=== PATIENT | female | born 1985 | race American Indian/Alaskan Native ===

== ENCOUNTER 2020-11-24 21:40 | Outpatient (CLI) | payer OTHER ==
[2020-11-24 22:28] VITALS: BP 118/64
[2020-11-24] MEDS ORDERED: LACTATED RINGERS 1000 ML IV SOLN ONE (23:30)
[2020-11-24] MEDS ORDERED: LACTATED RINGERS 1,000 ML IV ONE (23:37)
[2020-11-25 00:05] LABS: Bilirubin,Urine NEG (Negative); Blood,Urine NEG (Negative); Color,Urine Yellow (Yellow); Mucus,Urine FEW /HPF
[2020-11-25] MEDS ORDERED: ACETAMINOPHEN 500 MG TAB PO ONE (00:51)
--- NOTE | 2020-11-25 01:02 | Ultrasound Report ---
ULTRASOUND OBSTETRIC LIMITED ULTRASOUND BIOPHYSICAL PROFILE INDICATION / CLINICAL INFORMATION: well being. Clinical Gestational Age (GA) in weeks, days: 32 weeks 6 days TECHNIQUE: Transabdominal. COMPARISON: None available. FINDINGS: BREATHING MOVEMENT = 2 GROSS BODY MOVEMENT = 2 TONE = 2 QUALITATIVE AMNIOTIC FLUID VOLUME = 2 TOTAL BIOPHYSICAL SCORE = 8/8 HEART RATE (beats per minute): 147 AMNIOTIC FLUID INDEX (cm) = 20.9 (normal = 7-24 cm) PRESENTATION: Cephalic. ADDITIONAL FINDINGS: Placenta is located posterior/fundal without previa. IMPRESSION: 1. Biophysical Score = 8/8 2. Single viable IUP in a cephalic presentation with normal ALLIE. Signer Name: Kaycee Perdomo MD Signed: 11/25/2020 12:58 AM Workstation Name: [id number]
== END 2020-11-25 02:30 | disposition home or self-care (01) ==
LOC: TRG 21:40 → APU 21:49 → TRG 11-25 02:30
PROVIDERS: ATTEND Obstetrics & Gynecology
DX: O62.9 Abnormality of forces of labor, unspecified (principal); Z3A.32 32 weeks gestation of pregnancy
CPT/HCPCS: 59025; 76815; 76819; 81001; 96360; J7120; 96361

== ENCOUNTER 2021-01-06 20:38 | Inpatient (IN) | payer OTHER ==
[2021-01-06] MEDS ORDERED: OXYTOCIN 10 UNIT/1 ML INJ IM PRN ×2 (22:29→22:37)
[2021-01-06] MEDS ORDERED: MINERAL OIL 30 ML ORAL LIQD PO PRN ×2 (22:29→22:37)
[2021-01-06] MEDS ORDERED: ePHEDrine SULFATE 50 MG/1 ML INJ IV PRN ×2 (22:29→22:37)
[2021-01-06] MEDS ORDERED: CARBOPROST TROMETHAMINE 250 MCG/1 ML INJ IM PRN ×2 (22:29→22:37)
[2021-01-06] MEDS ORDERED: LOPERAMIDE 2 MG CAP PO PRN ×2 (22:29→22:37)
[2021-01-06] MEDS ORDERED: miSOPROStol 200 MCG TAB PR PRN ×2 (22:29→22:37)
[2021-01-06] MEDS ORDERED: fentaNYL 100 MCG/2 ML INJ IV PRN ×2 (22:29→22:37)
[2021-01-06] MEDS ORDERED: METHYLERGONOVINE MALEATE 0.2 MG/ML VIAL IM PRN ×2 (22:29→22:37)
[2021-01-06] MEDS ORDERED: LIDOCAINE (2%) 20 MG/1 ML VIAL 20 ML MDV INFILTRATI ONE ×2 (22:29→22:37)
[2021-01-06] MEDS ORDERED: TERBUTALINE 1 MG/1 ML INJ SUB-Q PRN ×2 (22:29→22:37)
[2021-01-06] MEDS ORDERED: BUTORPHANOL 2 MG/1 ML INJ IV PRN ×3 (22:29→22:37)
[2021-01-06] MEDS ORDERED: ACETAMINOPHEN 325 MG TAB PO PRN ×2 (22:29→22:37)
[2021-01-06] MEDS ORDERED: LACTATED RINGERS 1,000 ML IV SCH ×2 (22:30→22:45)
[2021-01-06] MEDS ORDERED: ONDANSETRON 4 MG/2 ML INJ IV PRN (22:37)
[2021-01-06 22:50] LABS: Hematocrit 30.9 % (30.3-42.9); Hemoglobin 9.6 gm/dl (10.1-14.3); Mean Corpuscular HGB Conc 31 % (30-34); Mean Corpuscular Volume 75 fl (79-97); Platelet Count 461 K/mm3 (140-440); Red Blood Count 4.14 M/mm3 (3.65-5.03)
[2021-01-06 22:51] LABS: Red Cell Distribution Width 21.6 % (13.2-15.2)
--- NOTE | 2021-01-06 22:55 | History and Physical Report ---
History of Present Illness Date of examination: 01/06/21 Date of admission: 01/06/21 20:38 Chief complaint: 38 weeks iup with polyhydramnios.here for ind;uction of labor. History of present illness: Patient is a 35-year-old -Citizen Of [place] female 6 para 3-0-2-3 female. Last menstrual period April 09, 2020 EDC January 14, 2021 her was shown that she was referred to a PA because of advanced maternal age. Also that she has a BMI of 38.888 admitted overnight 39 weeks. A PA. The patient desires permanent sterilization. She signed tubal consent for 1 hour GTT was 79 3-hour GTT was within normal limits hemoglobin A1c was 6.0. At bedtime the she was started Valtrex prophylaxis at 36 weeks she has polyhydramnios diagnosed by a 534.19 on December 11, 2020 her thyroid-stimulating hormone was 0.276. Patient had 7 visits at the office. Her chlamydia and gonorrhea tests were negative group B strep test was also negative she has no allergies no surgery. Past medical history was positive for osteoarthrosis and breast cancer and hepatitis C Herpes 2 she has had 2 abortions elective in the past. Catamenia was 1227. This is her sixth she is asked to induced abortions 3 full-term 3 living children her ultrasound was done in the first trimester. And also repeated in the second trimester. The patient is admitted for induction of labor for polyhydramnios at 38+ weeks for APA. Past History Past Medical History: no pertinent history Past Surgical History: other (2 ABORTIONS ELECTIVE) Family/Genetic History: other (Osteoarthrosis breast cancer diabetes type 2 and hepatitis C.) - Obstetrical History Expected Date of Delivery: 01/14/21 Actual Gestation: 38 Week(s) 6 Day(s) : 6 Para: 3 Hx # Term Pregnancies: 3 Number of Pregnancies: 0 Spontaneous Abortions: 0 Induced : 3 Number of Living Children: 3 Medications and Allergies Allergies Allergy/AdvReac Type Severity Reaction Status Date / Time No Known Allergies Allergy Verified 02/23/15 22:05 Home Medications Medication Instructions Recorded Confirmed Last Taken Type No Known Home Medications [No 02/25/15 11/24/20 Unknown History Reported Home Medications] Active Meds: Active Medications Acetaminophen (Acetaminophen 325 Mg Tab) 650 mg PO Q4H PRN PRN Reason: Pain, Mild (1-3) Butorphanol Tartrate (Butorphanol 2 Mg/1 Ml Inj) 2 mg IV Q2H PRN PRN Reason: Pain , Severe (7-10) Butorphanol Tartrate (Butorphanol 2 Mg/1 Ml Inj) 1 mg IV Q2H PRN PRN Reason: Pain, Moderate(4-6) LABOR PAIN Carboprost Tromethamine (Carboprost Tromethamine 250 Mcg/1 Ml Inj) 250 mcg IM ONCE PRN PRN Reason: Uterine Bleeding Ephedrine Sulfate (Ephedrine Sulfate 50 Mg/1 Ml Inj) 10 mg IV Q2M PRN PRN Reason: Hypotension Fentanyl (Fentanyl 100 Mcg/2 Ml Inj) 100 mcg IV Q2H PRN PRN Reason: Pain,Severe (7-10) LABOR PAIN Oxytocin/Sodium Chloride (Pitocin/Ns 30 Unit/500ml) 30 units in 500 mls @ 2 mls/hr IV TITR CLAY; Protocol Last Admin: 01/06/21 22:46 Dose: 2 ml/hr, 2 mls/hr Documented by: Lactated Ringer's (Lactated Ringers) 1,000 mls @ 125 mls/hr IV DIRECT CLAY Oxytocin/Sodium Chloride (Pitocin/Ns 30 Unit/500ml) 30 units in 500 mls @ 40 mls/hr IV TITR CLAY; Protocol Loperamide HCl (Loperamide 2 Mg Cap) 2 mg PO ONCE PRN PRN Reason: give with Hemabate Methylergonovine Maleate (Methylergonovine Maleate 0.2 Mg/Ml Vial) 0.2 mg IM ONCE PRN PRN Reason: Uterine Bleeding Mineral Oil (Mineral Oil 30 Ml Oral Liqd) 30 ml PO QHS PRN PRN Reason: Constipation Misoprostol (Misoprostol 200 Mcg Tab) [address] ONCE PRN PRN Reason: Uterine Bleeding Oxytocin (Oxytocin 10 Unit/1 Ml Inj) 10 unit IM ONCE PRN PRN Reason: Uterine Bleeding Terbutaline Sulfate (Terbutaline 1 Mg/1 Ml Inj) 0.25 mg SUB-Q ONCE PRN PRN Reason: Hyperstimulation/Hypertonicity Review of Systems All systems: negative - Vital Signs Vital signs: Vital Signs Temp Resp 97.9 F 12 01/06/21 21:09 01/06/21 21:09 Temp Pulse Resp BP Pulse Ox 97.9 F 12 01/06/21 21:09 01/06/21 21:09 - Physical Exam Breasts: Cardiovascular: Regular rate, Normal S1, Normal S2 Abdomen: Positive: normal appearance, soft, normal bowel sounds. Negative: distention, tenderness Vulva: both: normal Vagina: Positive: normal moisture. Negative: discharge Cervix: Negative: lesion, discharge Uterus: Positive: normal size, enlarged (TERM SIZE), normal contour Adnexa: both: normal Anus/Rectum: Positive: normal perianal skin, heme negative. Negative: rectal mass, hemorrhoids Extremities: Deep Tendon Reflex Grade: Normal +2 - Obstetrical FHR: category 1 Uterine Contraction Monitor Mode: External Cervical Dilatation: 3 Cervical Effacement Percentage: 70 station: -3 Uterine Contraction Frequency (min): Q5M Uterine Contraction Pattern: Irregular Results All other labs normal. Assessment and Plan 38 WEEKS IUP,POLYHYDRAMNIOS PLAN INDUCTION WITH PITOCIN.
[2021-01-06] MEDS ORDERED: OXYTOCIN DRIP 30 UNITS/500 ML BAG IV SCH ×3 (23:00)
[2021-01-07] MEDS: OXYTOCIN DRIP 30 UNITS/500 ML BAG IV SCH ×2 (00:15→09:44)
[2021-01-07] MEDS ORDERED: ePHEDrine SULFATE 50 MG/1 ML INJ IV PRN (03:31)
[2021-01-07] MEDS ORDERED: NALOXONE 2 MG/2 ML INJ IV PRN (03:31)
--- NOTE | 2021-01-07 03:33 | Anesthesia Consultation ---
Anesthesia Consult and Med Hx Date of service: 01/07/21 - Airway Anesthetic Teeth Evaluation: Good ROM Head & Neck: Adequate Mental/Hyoid Distance: Adequate Mallampati Class: Class III Intubation Access Assessment: Possibly Difficult - Pulmonary Exam CTA: Yes - Cardiac Exam Cardiac Exam: RRR - Pre-Operative Health Status ASA Pre-Surgery Classification: ASA3 Proposed Anesthetic Plan: Epidural - Pulmonary Hx Smoking: No Hx Asthma: No Hx Respiratory Symptoms: No SOB: No COPD: No Home Oxygen Therapy: No Hx Pneumonia: No Hx Sleep Apnea: No - Cardiovascular System Hx Hypertension: No Hx Coronary Artery Disease: No Hx Heart Attack/AMI: No Hx Angina: No Hx Percutaneous Transluminal Coronary Angioplasty (PTCA): No Hx Cardia Arrhythmia: No Hx Pacemaker: No Hx Internal Defibrillator: No Hx Valvular Heart Disease: No Hx Heart Murmur: No Hx Peripheral Vascular Disease: No - Central Nervous System Hx Neuromuscular Disorder: No Hx Seizures: No CVA: No Hx Back Pain: Yes Hx Psychiatric Problems: No - Gastrointestinal Hx Ulcer: No Hx Gastroesophageal Reflux Disease: Yes - Endocrine Hx Renal Disease: No Hx End Stage Renal Disease: No Hx Cirrhosis: No Hx Liver Disease: No Hx Insulin Dependent Diabetes: No Hx Non-Insulin Dependent Diabetes: No Hx Thyroid Disease: No Hx Hypothyroidism: No Hx Hyperthyroidism: No - Hematic Hx Anemia: No Hx Sickle Cell Disease: No - Other Systems Hx Alcohol Use: Yes Hx Substance Use: No Hx Cancer: No Hx Obesity: Yes
[2021-01-07] MEDS ORDERED: fentaNYL-BUPIV 2 MCG/ML-0.125% 200 MCG/100 ML BAG EPIDURAL SCH (04:00)
--- NOTE | 2021-01-07 04:03 | Progress Note ---
Labor Epidural - Labor Epidural Start Time: 03:40 Stop Time: 03:51 Performed by:: LISE KELLER Procedure: Patient is requesting a laboring epidural for laboring pain. Patient IDed, H&P reviewed, all questions and concerns were answered, and consent was signed. Timeout was performed at bedside. Patient in sitting position. Sterile prep and drape was performed. [3] ml of 1% lidocaine skin wheal at L[3]- L [4]. 18- gauge Tuohy epidural needle was advanced to loss of resistance with saline technique 9cm x1 attempt. Negative CSF negative blood. Epidural catheter advanced to [12] centimeters. [NEGATIVE] Aspiration [NEGATIVE] test dose. Sterile dressing applied. Patient tolerated procedure.
--- NOTE | 2021-01-07 07:12 | Procedure Note ---
Date of procedure: 01/07/21 Pre-op diagnosis: 39 wks iup,polyhydramnios Post-op diagnosis: same Procedure: ,LIVE BORN FEMALE ,WGT 8'11', 8,9. NO TEARS. PLACENTA SPONTANEOUS, EBL 100CCS. Anesthesia: epidural Surgeon: PORFIRIO REIS Estimated blood loss: 50-100ml Pathology: none Specimen disposition: discarded Condition: stable Disposition: PACU
[2021-01-07] MEDS ORDERED: LANOLIN/ZINC/DIMETHICONE (LANSINOH) 7 GM TP PRN (08:00)
[2021-01-07] MEDS ORDERED: PROMETHAZINE 25 MG TAB PO PRN (08:00)
[2021-01-07] MEDS ORDERED: diphenhydrAMINE 25 MG CAP PO PRN (08:00)
[2021-01-07] MEDS ORDERED: ONDANSETRON 4 MG/2 ML INJ IV PRN (08:00)
[2021-01-07] MEDS ORDERED: PROMETHAZINE 25 MG RECT SUPP PR PRN (08:00)
[2021-01-07] MEDS ORDERED: oxyCODONE /ACETAMINOPHEN 5-325MG TAB PO PRN (08:00)
[2021-01-07] MEDS ORDERED: WITCH HAZEL/ GLYCERIN PAD TP PRN (08:00)
[2021-01-07] MEDS: ACETAMINOPHEN 325 MG TAB PO PRN ×3 (12:11→22:53)
[2021-01-07] MEDS: IBUPROFEN 600 MG TAB PO SCH ×3 (15:23→20:32)
[2021-01-07 20:15] LABS: Hematocrit 27.7 % (30.3-42.9); Hemoglobin 8.6 gm/dl (10.1-14.3)
[2021-01-07] MEDS ORDERED: MAGNESIUM HYDROXIDE (MOM) ORAL LIQD UDC PO PRN (22:00)
[2021-01-08] MEDS: IBUPROFEN 600 MG TAB PO SCH ×5 (06:11→20:53)
[2021-01-08] MEDS: ACETAMINOPHEN 325 MG TAB PO PRN ×2 (09:23→16:56)
[2021-01-08] MEDS: FERROUS SULFATE 325 MG TAB PO SCH (09:24)
--- NOTE | 2021-01-08 09:59 | Progress Note ---
Assessment and Plan A: S/P Asymptomatic anemia p: Continue routine pp care Fe prescribed Advised foods high in Fe D/C home tomm if stable Subjective - Subjective Date of service: 01/08/21 Principal diagnosis: s/p Patient reports: appetite normal, voiding normally, pain well controlled, ambulating normally, other (Denies weakness, sob or dizziness) [place]: doing well, bottle feeding Objective - Vital Signs Latest vital signs: Vital Signs Temp Pulse Resp BP BP Pulse Ox 01/08/21 07:51 98.1 F 79 20 114/68 97 01/08/21 07:02 18 01/08/21 06:11 18 01/07/21 23:53 18 01/07/21 23:19 98.5 F 74 18 105/63 99 01/07/21 22:53 18 01/07/21 21:32 18 01/07/21 20:32 18 01/07/21 14:30 98.1 F 83 18 120/70 01/07/21 14:03 83 99 01/07/21 13:58 72 98 01/07/21 13:53 84 99 01/07/21 13:48 71 100 01/07/21 13:43 74 98 01/07/21 13:38 81 97 01/07/21 13:33 91 H 95 01/07/21 13:31 84 94 01/07/21 13:28 72 96 01/07/21 13:25 77 94 01/07/21 13:23 80 97 01/07/21 13:20 79 90 01/07/21 13:18 73 98 01/07/21 13:14 74 117/56 01/07/21 13:13 83 98 01/07/21 13:08 72 99 01/07/21 13:03 73 99 01/07/21 12:58 76 97 01/07/21 12:53 73 98 01/07/21 12:48 67 98 01/07/21 12:43 74 99 01/07/21 12:38 73 97 01/07/21 12:33 70 98 01/07/21 12:28 79 97 01/07/21 12:23 72 98 01/07/21 12:18 75 98 01/07/21 12:14 80 117/74 01/07/21 12:13 65 98 01/07/21 12:11 22 01/07/21 12:08 68 98 01/07/21 12:03 69 98 01/07/21 11:58 67 99 01/07/21 11:53 66 98 01/07/21 11:48 73 99 01/07/21 11:43 65 99 01/07/21 11:41 68 94 01/07/21 11:38 70 96 01/07/21 11:33 80 97 01/07/21 11:28 78 98 01/07/21 11:23 75 91 01/07/21 11:18 73 99 01/07/21 11:14 76 127/73 01/07/21 11:13 74 98 01/07/21 11:08 73 98 01/07/21 11:03 76 99 01/07/21 10:58 74 99 01/07/21 10:53 73 99 01/07/21 10:48 80 99 01/07/21 10:43 73 98 01/07/21 10:38 74 98 01/07/21 10:33 76 99 01/07/21 10:32 78 128/73 01/07/21 10:28 71 99 01/07/21 10:23 70 100 01/07/21 10:18 71 100 01/07/21 10:13 70 146/87 100 01/07/21 10:08 72 100 01/07/21 10:03 72 100 01/07/21 09:58 76 100 Intake and Output 01/07/21 01/08/21 01/08/21 22:59 06:59 14:59 Intake Total 240 240 Output Total 450 Balance -210 240 Intake: Oral 240 Intake, Free Water 240 Output: Urine 450 Void 450 Other: Total, Intake Amount 240 Total, Output Amount 450 # Voids Void 1 2 - Exam Breasts: Present: normal Abdomen: Present: normal appearance, soft, normal bowel sounds Vulva: both: normal Uterus: Present: normal, firm Extremities: Present: normal - Labs Labs: Abnormal lab results 01/07/21 Range/Units 19:05 Hgb 8.6 L (10.1-14.3) gm/dl Hct 27.7 L (30.3-42.9) %
--- NOTE | 2021-01-08 14:56 | Post Anesthesia Evaluation ---
- Post Anesthesia Evaluation Patient Participated: Yes Airway Patent: Yes Stable Respiratory Function: Yes Nausea/Vomiting: No Temp > 96.8F: Yes Pain Manageable: Yes Adequeate Hydration: Yes Anesthesia Complications: No Block Receding Appropriately: Yes Patient on Ventilator: No
[2021-01-09] MEDS: HYDROcodone/ACETAMINOPHEN 5-325 MG TAB PO PRN ×2 (00:56→08:45)
[2021-01-09] MEDS: FERROUS SULFATE 325 MG TAB PO SCH (08:44)
--- NOTE | 2021-01-09 12:26 | Progress Note ---
Assessment and Plan A: day 2 S/P . Anemia. P: Discharge patient home today. Discussed with patient discharge instructions and warning signs. Advised patient to continue taking her vitamin and iron supplement at home. Advised patient to avoid intercourse, lifting, and heavy housework for 6-8 weeks. Advised patient to follow up at [facility] in 6 weeks. Patient voiced understanding of all instructions. Subjective - Subjective Date of service: 01/09/21 Principal diagnosis: day 2 S/P Interval history: Doing well; desires discharge home today. Patient reports: appetite normal, voiding normally, pain well controlled, flatus, ambulating normally, no dizzy ambulation, no nauseated [place]: doing well, bottle feeding Objective - Vital Signs Latest vital signs: Vital Signs Temp Pulse Resp BP Pulse Ox 01/09/21 08:44 97.6 F 81 18 133/72 98 01/09/21 01:33 98.0 F 75 16 117/69 99 01/08/21 15:35 97.8 F 77 16 117/61 96 Intake and Output 01/08/21 01/09/21 01/09/21 23:59 07:59 15:59 Intake Total 600 360 Balance 600 360 Intake: Oral 600 Intake, Free Water 360 Other: Total, Intake Amount 240 # Voids Void 1 2 - Exam Cardiovascular: Present: Regular rate Lungs: Present: Clear to auscultation Abdomen: Present: normal appearance, soft. Absent: distention, tenderness, guarding, rigidity Uterus: Present: normal, firm, fundal height below umbilicus. Absent: bogginess, tenderness Extremities: Absent: tenderness, edema
--- NOTE | 2021-01-09 12:29 | Discharge Summary ---
Providers - Providers Date of Admission: 01/06/21 20:38 Date of discharge: 01/09/21 Attending physician: PORFIRIO REIS MD Primary care physician: PORFIRIO REIS MD Hospitalization Reason for admission: induction of labor Delivery: Episiotomy: none Laceration: none Other procedures: none complications: none Discharge diagnosis: IUP at term delivered [place] baby: female Pertinent studies: Labs Hospital course: Normal hospital course Condition at discharge: Good Disposition: DC-01 TO HOME OR SELFCARE - Discharge Diagnoses (1) Term delivered Status: Acute (2) Anemia Status: Acute Plan - Provider Discharge Summary Activity: routine, no sex for 6 weeks, no heavy lifting 4 weeks, no strenuous exercise Diet: routine Instructions: routine Additional instructions: Continue taking your vitamins and iron supplements at home. Follow up at [facility] office in 6 weeks. Call your doctor immediately for: * Fever > 100.5 * Heavy vaginal bleeding ( >1 pad per hour) * Severe persistent headache * Shortness of breath * Reddened, hot, painful area to leg or breast - Follow up plan Follow up: PORFIRIO REIS MD [Primary Care Provider] - 6 Weeks Forms: [facility] Discharge Summary, Discharge Signature Page
[2021-01-09 13:02] VITALS: BP 127/69
== END 2021-01-09 13:35 | disposition home or self-care (01) | DRG 775 ==
LOC: LD 20:38 → OB 01-07 14:40
PROC: 10E0XZZ Delivery of Products of Conception, External Approach (ICD-10-PCS; principal; 2021-01-07)
PROC: 3E0R3BZ Introduction of Anesthetic Agent into Spinal Canal, Percutaneous Approach (ICD-10-PCS; 2021-01-07)
PROC: 00HU33Z Insertion of Infusion Device into Spinal Canal, Percutaneous Approach (ICD-10-PCS; 2021-01-07)
DX: O99.214 Obesity complicating childbirth (principal); O40.3XX0 Polyhydramnios, third trimester, not applicable or unspecified; O99.62 Diseases of the digestive system complicating childbirth; O99.02 Anemia complicating childbirth; Z20.822 Contact with and (suspected) exposure to COVID-19; K21.9 Gastro-esophageal reflux disease without esophagitis; Z3A.38 38 weeks gestation of pregnancy; Z37.0 Single live birth; Z86.19 Personal history of other infectious and parasitic diseases; Z85.3 Personal history of malignant neoplasm of breast; Z83.3 Family history of diabetes mellitus; D64.9 Anemia, unspecified
CPT/HCPCS: 36415; 85014; 85018; 85027; 86592; 86850; 86900; 86901; G0378; J2590; J3010; J7120; U0003

== ENCOUNTER 2021-05-25 00:46 | Emergency (ER) | payer OTHER ==
[2021-05-25 01:14] VITALS: BP 142/83
[2021-05-25] MEDS ORDERED: HYDROcodone/ACETAMINOPHEN 7.5-325MG TAB PO ONE (01:52)
[2021-05-25] MEDS ORDERED: ONDANSETRON 4 MG ODT TAB PO ONE (01:52)
[2021-05-25] MEDS ORDERED: CLINDAMYCIN 150 MG CAP PO ONE (01:52)
[2021-05-25] MEDS ORDERED: KETOROLAC 30 MG/1 ML INJ IM ONE (01:52)
--- NOTE | 2021-05-25 02:08 | Emergency Department Report ---
ED General Adult HPI - General Chief complaint: Dental/Oral Stated complaint: RT TOOTH PAIN PUI?: No Source: patient Mode of arrival: Ambulatory Limitations: No Limitations - History of Present Illness Initial comments: Patient is a 36-year-old -[place] female with a history of GERD who presents to the ED with complaint of acute onset persistent severe right mandibular gingiva pain and swelling and premolar and molar toothache for the last 5 days. Patient states that she was initially evaluated at another hospital and was given a prescription of amoxicillin 500 mg be taken 1 capsule every 12 hours. Patient states that she has been taking Motrin 800 mg and Tylenol No. 3 tablets with no relief. Patient states that in the last 6 hours the pain has been excruciatingly worse and that she is unable to sleep because of worsening pain. Patient denies fever, chills, dizziness, syncope, cough, sore throat, traumatic injury or fall, nausea and vomiting or diarrhea and abdominal pain. MD Complaint: right mandibular gingival swelling and pain; premolar and molar toothache -: Sudden, days(s) (5) Location: mouth Severity scale (0 -10): 10 Quality: aching, sharp Consistency: constant Improves with: none Worsens with: eating Associated Symptoms: denies other symptoms, headaches. denies: confusion, chest pain, cough, diaphoresis, fever/chills, loss of appetite, malaise, nausea/vomiting, rash, shortness of breath, syncope, weakness Treatments Prior to Arrival: NSAID - Related Data Previous Rx's Medication Instructions Recorded Last Taken Type Clindamycin [Clindamycin CAP] 300 mg PO Q8HR #60 capsule 05/25/21 Unknown Rx Ketorolac [Toradol] 10 mg PO Q8H PRN #20 tablet 05/25/21 Unknown Rx Allergies Allergy/AdvReac Type Severity Reaction Status Date / Time No Known Allergies Allergy Verified 05/22/21 16:31 ED Review of Systems ROS: Stated complaint: RT TOOTH PAIN Other details as noted in HPI Constitutional: denies: chills, fever Eyes: denies: eye pain, eye discharge, vision change ENT: dental pain (Right mandibular premolar and molar toothache; painful swollen right mandibular gingiva). denies: ear pain, throat pain Respiratory: denies: cough, shortness of breath, wheezing Cardiovascular: denies: chest pain, palpitations Endocrine: no symptoms reported Gastrointestinal: denies: abdominal pain, nausea, vomiting, diarrhea Genitourinary: denies: urgency, dysuria, discharge Musculoskeletal: denies: back pain, joint swelling, arthralgia Skin: denies: rash, lesions Neurological: headache. denies: weakness, paresthesias Psychiatric: denies: anxiety, depression Hematological/Lymphatic: denies: easy bleeding, easy bruising ED Past Medical Hx - Past Medical History Previous Medical History?: Yes Hx Hypertension: No Hx Heart Attack/AMI: No Hx Congestive Heart Failure: No Hx Diabetes: No Hx Deep Vein Thrombosis: No Hx GERD: Yes (Food dependent) Hx Liver Disease: No Hx Renal Disease: No Hx Sickle Cell Disease: No Hx Seizures: No Hx Asthma: No Hx COPD: No Hx HIV: No - Surgical History Past Surgical History?: No Hx Pacemaker: No Hx Internal Defibrillator: No - Social History Smoking Status: Current Every Day Smoker - Medications Home Medications: Home Medications Medication Instructions Recorded Confirmed Last Taken Type Clindamycin [Clindamycin CAP] 300 mg PO Q8HR #60 capsule 05/25/21 Unknown Rx Ketorolac [Toradol] 10 mg PO Q8H PRN #20 tablet 05/25/21 Unknown Rx ED Physical Exam - General Limitations: No Limitations General appearance: alert, in no apparent distress - Head Head exam: Present: atraumatic, normocephalic, normal inspection - Eye Eye exam: Present: normal appearance, PERRL, EOMI Pupils: Present: normal accommodation - ENT ENT exam: Present: mucous membranes moist, TM's normal bilaterally, normal external ear exam, other (Swollen, severely tender right mandibular gingiva; severely tender right mandibular premolar and molar teeth tenderness) - Neck Neck exam: Present: normal inspection, full ROM - Respiratory Respiratory exam: Present: normal lung sounds bilaterally. Absent: respiratory distress, wheezes, rales, rhonchi, chest wall tenderness, accessory muscle use, decreased breath sounds, prolonged expiratory - Cardiovascular Cardiovascular Exam: Present: regular rate, normal rhythm, normal heart sounds. Absent: systolic murmur, diastolic murmur, rubs, gallop - GI/Abdominal GI/Abdominal exam: Present: soft, normal bowel sounds. Absent: tenderness, guarding, rebound, hyperactive bowel sounds, hypoactive bowel sounds, organomegaly, mass - Extremities Exam Extremities exam: Present: normal inspection, full ROM, normal capillary refill - Back Exam Back exam: Present: normal inspection, full ROM. Absent: tenderness, CVA tenderness (R), CVA tenderness (L), muscle spasm, paraspinal tenderness, vertebral tenderness - Neurological Exam Neurological exam: Present: alert, oriented X3, CN II-XII intact, normal gait, reflexes normal - Psychiatric Psychiatric exam: Present: normal affect, normal mood - Skin Skin exam: Present: warm, dry, intact, normal color. Absent: rash ED Course Vital Signs 05/25/21 01:11 Temperature 98 F Pulse Rate 78 Respiratory 18 Rate Blood Pressure 142/83 [Right] O2 Sat by Pulse 99 Oximetry ED Medical Decision Making - Medical Decision Making This is a 36-year-old -[place] female with a history of GERD who presents to the ED with complaint of acute onset persistent severe right mandibular gingiva pain and swelling and premolar and molar toothache for the last 5 days. Patient states that she was initially evaluated at another hospital and was given a prescription of amoxicillin 500 mg be taken 1 capsule every 12 hours. Patient states that she has been taking Motrin 800 mg and Tylenol No. 3 tablets with no relief. Patient states that in the last 6 hours the pain has been excruciatingly worse and that she is unable to sleep because of worsening pain. In the ED, patient is alert and oriented x3 and is not in distress but appears to be in pain. Patient was treated for pain in the ED and observed. On reevaluation, patient's pain is well controlled medication. Patient will discharge home on a new antibiotic clindamycin 300 mg every 8 hours. Patient was advised to stop taking amoxicillin that was previously prescribed. Patient was advised to return to the ED immediately if symptoms get worse, otherwise follow-up with the dentist in 7 to 10 days for reevaluation. - Differential Diagnosis Dental abscess; gingivitis; dental caries Critical care attestation.: If time is entered above; I have spent that time in minutes in the direct care of this critically ill patient, excluding procedure time. ED Disposition Clinical Impression: Dental abscess, Acute gingivitis, Dental caries Disposition: HOME / SELF CARE / HOMELESS Is pt being admited?: No Does the pt Need Aspirin: No Condition: Stable Instructions: Dental Abscess, [id number], Trench Mouth Additional Instructions: Take medication as needed for pain, take the newly prescribed antibiotic as advised, follow-up with the dentist in 7 to 10 days for reevaluation. Return to the ED immediately if symptoms get worse. Prescriptions: Clindamycin [Clindamycin CAP] 300 mg PO Q8HR #60 capsule Ketorolac [Toradol] 10 mg PO Q8H PRN #20 tablet PRN Reason: Pain Referrals: [facility] [Outside] - 3-5 Days Forms: Work/School Release Form(ED) Time of Disposition: 02:08 Print Language: [place]
== END 2021-05-25 03:02 | disposition home or self-care (01) ==
LOC: ED 00:46
DX: K04.7 Periapical abscess without sinus (principal); K05.00 Acute gingivitis, plaque induced; K02.9 Dental caries, unspecified; K21.9 Gastro-esophageal reflux disease without esophagitis; F17.200 Nicotine dependence, unspecified, uncomplicated
CPT/HCPCS: 96372; 99282; J1885; J3490; Q0162